=== PATIENT | female | born 1980 | race African-American/Black ===

== ENCOUNTER 2020-03-05 15:06 | Emergency (ER) | payer BC, OTHER ==
[~2020-03-05] VITALS: Ht 162.6 cm; Wt 129.3 kg
[2020-03-05] MEDS ORDERED: PREDNISONE 20 M20 MG PO (16:55)
[2020-03-05] MEDS ORDERED: BENADRYL25 MG PO (16:55)
[2020-03-05] MEDS ORDERED: PEPCID AC20 MG PO (16:55)
[2020-03-05 17:31] VITALS: BP 131/86
== END 2020-03-05 17:00 | disposition home or self-care (01) ==
LOC: ER 15:06
DX: T63.441A Toxic effect of venom of bees, accidental (unintentional), initial encounter (principal); L50.9 Urticaria, unspecified; Z88.5 Allergy status to narcotic agent; Y92.89 Other specified places as the place of occurrence of the external cause